=== PATIENT | female | born 1955 | race Caucasian/White ===

== ENCOUNTER → 2017-01-19 | Outpatient (CLI) | payer BC ==
[~2017-01-19] MED LIST: B COMPLEX #11 TAB PO; MASON NATURAL1200 MG PO; MULTI VITAMINS1 TAB PO; NASONEX SPRAY17 GM NS; NATURE'S BLE1000 MCG PO; SYNTHROID0.075 MG/T PO; VALTREX1 GM PO
== END ==
LOC: MC.RAD 09:46
DX: Z12.31 Encounter for screening mammogram for malignant neoplasm of breast (principal)

== ENCOUNTER → 2019-03-01 | Outpatient (CLI) | payer BC | LOC: MC.RAD 13:45 | DX: Z12.31 Encounter for screening mammogram for malignant neoplasm of breast (principal); N63.10 Unspecified lump in the right breast, unspecified quadrant; N63.20 Unspecified lump in the left breast, unspecified quadrant ==

== ENCOUNTER → 2020-02-08 | Outpatient (CLI) | payer MEDICARE | LOC: MC.RAD 13:19 | DX: Z12.31 Encounter for screening mammogram for malignant neoplasm of breast (principal) ==

== ENCOUNTER → 2021-02-28 | Outpatient (CLI) | payer MEDICARE | LOC: MC.RAD 10:10 | DX: Z12.31 Encounter for screening mammogram for malignant neoplasm of breast (principal) ==

== ENCOUNTER → 2022-04-15 | Outpatient (CLI) | payer MEDICARE, BC | LOC: MC.RAD 11:12 | DX: Z12.31 Encounter for screening mammogram for malignant neoplasm of breast (principal) ==

== ENCOUNTER 2023-09-11 07:15 | Emergency (ER) | payer MEDICARE, BC ==
[~2023-09-11] VITALS: Ht 170.2 cm; Wt 86.4 kg
[2023-09-11 07:32] VITALS: TEMP 97.6
[2023-09-11] MEDS ORDERED: Ketorolac 60 MG/2 ML VIAL IM ONE (08:00)
[2023-09-11] MEDS ORDERED: Morphine 10 MG/ML VIAL IM ONE (08:00)
[2023-09-11] MEDS ORDERED: MOTRIN 800800 MG/TAB PO (09:59)
[2023-09-11] MEDS ORDERED: FLEXERIL 1010 MG/TAB PO (09:59)
[2023-09-11] MEDS ORDERED: PERCOCET 325 MG1 TA2 PO (09:59)
[2023-09-11 10:06] VITALS: BP 122/66; PULSE 53
== END 2023-09-11 10:06 | disposition home or self-care (01) ==
LOC: COL.ER 07:15
DX: M54.16 Radiculopathy, lumbar region (principal)
CPT/HCPCS: J1885; J2270; J2360